=== PATIENT | male | born 1940 | race Caucasian/White ===

== ENCOUNTER 2016-08-17 14:12 | Emergency (ER) | payer MEDICARE, BC ==
[~2016-08-17] VITALS: Ht 182.9 cm; Wt 84.0 kg
[2016-08-17 14:30] VITALS: BP 142/68; PULSE 80; RESP 18; TEMP 99.3; O2SAT 96
[2016-08-17 18:33] VITALS: BP 160/81; PULSE 69; RESP 20; O2SAT 98
[2016-08-17] MEDS ORDERED: AZEL1SPR2 EACH NARE (18:39)
[2016-08-17] MEDS ORDERED: SYMB80AE INH (18:39)
[2016-08-17] MEDS ORDERED: PANT40TA3 PO (18:39)
[2016-08-17] MEDS ORDERED: ASPI1TAB69 PO (18:39)
[2016-08-17] MEDS ORDERED: VITA100064 PO (18:39)
[2016-08-17] MEDS ORDERED: VENTAER INH (18:39)
[2016-08-17] MEDS ORDERED: FINA5TAB2 PO (18:39)
[2016-08-17] MEDS ORDERED: OMEGCAP PO (18:39)
[2016-08-17] MEDS ORDERED: ATOR20TA15 PO (18:39)
--- NOTE | 2016-08-17 19:26 | PD ---
HPI Chief Complaint: Edema Time Seen by Provider: 19:20 Travel History International Travel<30 days: No Contact w/Intl Traveler<30days: No Traveled to known affect area: No History of Present Illness HPI 76-year-old male presents to the emergency department for complaint of bilateral pedal edema for 3-4 days. Patient has noted some change in severity of swelling after elevation. Some discomfort to the feet and ankles and lower legs. Patient recently traveled here by car from [place] 2 weeks ago. No shortness of breath no pleuritic pain no chest pain. Patient does have history of COPD patient does not report orthopnea or PND. Patient notes that 2 weeks ago he had some mild edema but that resolved and this has been persistent. No fever no chills no nausea no vomiting no chest pain no referred neck jaw back shoulder arm or abdominal pain. Patient denies any recent history or fall. No recent surgical procedure. No history of clotting disorder. Patient takes aspirin daily. Patient states he recently completed 4 courses of antibiotic for recurrent pneumonia. Is currently on a tapering dose of steroid. Patient denies any use of a diuretic. Patient rates pain 0/10. PFSH Past Medical History Narrative Medical Dyslipidemia COPD GERD herniorrhaphy carotid surgery no tobacco use nursing notes reviewed High Cholesterol: Yes COPD: Yes GERD: Yes Respiratory: Yes (COPD) Past Surgical History Other Surgery: Yes (HERNIA, CAROTID ARTERY) Social History Alcohol Use: No Tobacco Use: No (FORMER) Substance Use: No Allergies-Medications (Allergen,Severity, Reaction): Coded Allergies: Penicillin (Verified Allergy, Severe, Hives, 08/17/16) Spiriva (Verified Allergy, Severe, Throat swelling, 08/17/16) Sulfa (Verified Allergy, Severe, Hives, 08/17/16) Biaxin (Verified Allergy, Unknown, 08/17/16) Cipro (Verified Allergy, Unknown, Unknown, 08/17/16) Clarithromycin (Verified Allergy, Unknown, 08/17/16) Levaquin (Verified Allergy, Unknown, 08/17/16) Metronidazole (Verified Allergy, Unknown, 08/17/16) Tiotropium (Verified Allergy, Unknown, 08/17/16) Reported Meds & Prescriptions Reported Meds & Active Scripts Active Lasix (Furosemide) 20 Mg Tab 20 Mg PO DAILY Reported Ventolin Hfa 18 GM Inh (Albuterol Sulfate) 90 Mcg/Act Aer 1 Puff INH Q4H PRN Azelastine Nasal Pierron (Azelastine HCl) 0.1% Pierron 1 Pierron EACH NARE BID Symbicort Inh (Budesonide/Formoterol Fumarate) 80-4.5 Mcg/Act Aero 1 Puff INH Q12HR Vitamin D (Cholecalciferol) 1,000 Unit Tab 2,000 Units PO DAILY [place]-3 Fish Oil/Vitamin (Fish Oil-Cholecalciferol) 1,000-1,000 Mg Cap 1 Cap PO DAILY Aspirin 81 Mg Tabdr 81 Mg PO DAILY Finasteride 5 Mg Tab 5 Mg PO DAILY Do not crush. Pantoprazole (Pantoprazole Sodium) 40 Mg Tab 40 Mg PO DAILY Atorvastatin (Atorvastatin Calcium) 20 Mg Tab 20 Mg PO HS Review of Systems Except as stated in HPI: all other systems reviewed are Neg General / Constitutional: No: Fever, Chills Eyes: No: Visual changes HENT: No: Congestion Cardiovascular: Positive: Edema (bilateral pedal/ankle /lower leg), No: Chest Pain or Discomfort, Syncope, Dyspnea on exertion Respiratory: Positive: Shortness of Breath (chronic no exacerbation), No: Cough, Orthopnea, Pleuritic Pain Gastrointestinal: No: Nausea, Vomiting Genitourinary: No: Flank Pain Musculoskeletal: Positive: Edema, No: Myalgias, Arthralgias Skin: No Rash Neurologic: No: Weakness Psychiatric: No: Anxiety Endocrine: No: Polyuria Hematologic/Lymphatic: No: Lymph Node Enlargement Physical Exam Narrative GENERAL: Well-developed well-nourished male in no acute distress no respiratory distress using supplemental oxygen which is his normal. SKIN: Warm and dry. HEAD: Normocephalic. EYES: No scleral icterus. No injection or drainage. NECK: Supple, trachea midline. No JVD or lymphadenopathy. CARDIOVASCULAR: Regular rate and rhythm without murmurs, gallops, or rubs. RESPIRATORY: Breath sounds equal bilaterally. No accessory muscle use. GASTROINTESTINAL: Abdomen soft, non-tender, nondistended. MUSCULOSKELETAL: No cyanosis, bilateral 1+ ankle and pedal edema. Capillary refill brisk and less than 2 seconds per digit. Palpable dorsalis pedis pulses. BACK: Nontender without obvious deformity. No CVA tenderness. Data Data Last Documented VS Vital Signs Date Time Temp Pulse Resp B/P Pulse Ox O2 Delivery O2 Flow Rate FiO2 2/6/17 22:15 78 18 97 Nasal Cannula 2 08/17/16 22:00 134/72 08/17/16 14:30 99.3 Orders Complete Blood Count With Diff (08/17/16 19:17) Basic Metabolic Panel (Bmp) (08/17/16 19:17) B-Type Natriuretic Peptide (08/17/16 19:17) Troponin I (08/17/16 19:17) Urinalysis - C+S If Indicated (08/17/16 19:17) Iv Access Insert/Monitor (08/17/16 19:17) Ecg Monitoring (08/17/16 19:17) Oximetry (08/17/16 19:17) Oxygen Administration (08/17/16:17) Chest, Single Ap (08/17/16 19:17) Sodium Chloride 0.9% Flush (Ns Flush) (08/17/16 19:30) Us Leg Venous Doppler Bilat (08/17/16 ) Magnesium (Mg) (08/17/16 19:17) Labs Laboratory Tests Test 08/17/16 08/17/16 19:35 20:25 White Blood Count 9.1 TH/MM3 Red Blood Count 4.18 MIL/MM3 Hemoglobin 13.1 GM/DL Hematocrit 40.3 % Mean Corpuscular Volume 96.4 FL Mean Corpuscular Hemoglobin 31.5 PG Mean Corpuscular Hemoglobin 32.7 % Concent Red Cell Distribution Width 14.5 % Platelet Count 219 TH/MM3 Mean Platelet Volume 7.8 FL Neutrophils (%) (Auto) 83.9 % Lymphocytes (%) (Auto) 9.3 % Monocytes (%) (Auto) 6.0 % Eosinophils (%) (Auto) 0.4 % Basophils (%) (Auto) 0.4 % Neutrophils # (Auto) 7.8 TH/MM3 Lymphocytes # (Auto) 0.8 TH/MM3 Monocytes # (Auto) 0.5 TH/MM3 Eosinophils # (Auto) 0.0 TH/MM3 Basophils # (Auto) 0.0 TH/MM3 CBC Comment DIFF FINAL Differential Comment Sodium Level 146 MEQ/L Potassium Level 4.4 MEQ/L Chloride Level 108 MEQ/L Carbon Dioxide Level 31.7 MEQ/L Anion Gap 6 MEQ/L Blood Urea Nitrogen 16 MG/DL Creatinine 0.95 MG/DL Estimat Glomerular Filtration 77 ML/MIN Rate Random Glucose 102 MG/DL Calcium Level 8.3 MG/DL Magnesium Level 2.3 MG/DL Troponin I LESS THAN 0.02 NG/ML B-Type Natriuretic Peptide 47 PG/ML Urine Collection Type VOIDED Urine Color STRAW Urine Turbidity CLEAR Urine pH 6.5 Urine Specific [place] 1.008 Urine Protein NEG mg/dL Urine Glucose (UA) NEG mg/dL Urine Ketones NEG mg/dL Urine Occult Blood NEG Urine Nitrite NEG Urine Bilirubin NEG Urine Leukocyte Esterase NEG Urine Squamous Epithelial 0-2 /hpf Cells Microscopic Urinalysis Comment CULT NOT INDICATED MDM Medical Decision Making Medical Screen Exam Complete: Yes Emergency Medical Condition: Yes Medical Record Reviewed: Yes Interpretation(s) CBC & BMP Diagram 08/17/16 19:35 Last Impressions Chest X-Ray 08/17/16 1917 Signed Impressions: Service Date/Time: Wednesday, August 17, 2016 19:54 - CONCLUSION: 1. Emphysema with mild hyperinflation. Linear scarring left lung base. No focal consolidation. Yonathan Palomares MD Lower Extremity Ultrasound 08/17/16 0000 Signed Impressions: Service Date/Time: Wednesday, August 17, 2016 20:00 - CONCLUSION: Normal examination. Yonathan Palomares MD Differential Diagnosis Dependent edema, CHF, DVT, hypoproteinemia/hypoalbuminemia, renal dysfunction, lymphedema Narrative Course IV access obtained specimens collected and sent for resulting Imaging studies ordered Patient resting comfortably awaiting results Chest x-ray COPD otherwise no acute abnormality ultrasound negative for DVT lab values grossly normal range; patient declined EKG --no chest pain "just had one " doesn't want it; at this time patient appears stable for outpatient management and follow-up with primary care physician. Diagnosis Primary Impression: Pedal edema Referrals: Primary Care Physician call for appointment Patient Instructions: General Instructions Additional Instructions: Continue current medications as presently prescribed Elevate lower extremities Recommend as needed use of compression stockings May use diuretic as prescribed as needed but not to be taken daily or on a daily basis Return to the emergency department for any concerns or change in condition Med/Other Pt SpecificInfo: Prescription(s) given Scripts Furosemide (Lasix)20 Mg Tab20 Mg PO DAILY #4 TAB Ref 0 Prov:Yasmin Burt MD 08/17/16 Disposition: 01 DISCHARGE HOME Condition: Stable Yasmin Burt MD Aug 17, 2016 19:26
[2016-08-17] MEDS ORDERED: SODIUM CHLORIDE 0.9% FLUSH 5 ML FLUSH IVF PRN (19:30)
[2016-08-17 19:35] VITALS: O2SAT 97
[2016-08-17 19:56] LABS: CHLORIDE 108 MEQ/L (98-107); POTASSIUM 4.4 MEQ/L (3.5-5.1); SODIUM (NA) 146 MEQ/L (136-145)
[2016-08-17 19:59] LABS: ANION GAP 6 MEQ/L (5-15); AUTOMATED NEUTROPHIL # 7.8 TH/MM3 (1.8-7.7); BASOPHIL % 0.4 % (0.0-2.0); BICARBONATE 31.7 MEQ/L (21.0-32.0); BLOOD UREA NITROGEN 16 MG/DL (7-18); EOSINOPHIL % 0.4 % (0.0-4.0); HEMATOCRIT 40.3 % (39.0-51.0); HEMO FLAGS DIFF FINAL; LYMPH % 9.3 % (9.0-44.0); LYMPHOCYTE # 0.8 TH/MM3 (1.0-4.8); MAGNESIUM 2.3 MG/DL (1.5-2.5); MEAN CELL VOLUME 96.4 FL (80.0-100.0); MEAN CORPUSCULAR HEMOGLOBIN 31.5 PG (27.0-34.0); MEAN CORPUSCULAR HGB CONC 32.7 % (32.0-36.0); NEUT % 83.9 % (16.0-70.0); PLATELET COUNT 219 TH/MM3 (150-450); RED BLOOD COUNT 4.18 MIL/MM3 (4.50-5.90); RED CELL DISTRIBUTION WIDTH 14.5 % (11.6-17.2); WHITE BLOOD COUNT 9.1 TH/MM3 (4.0-11.0)
[2016-08-17 20:03] LABS: GLOMERULAR FILTRATION RATE 77 ML/MIN (>89)
[2016-08-17 20:30] LABS: BLOOD, URINE NEG (NEG); GLUCOSE,URINE NEG (NEG); KETONE, URINE NEG (NEG); NITRITE,URINE NEG (NEG); PH, URINE 6.5 (5.0-8.5)
[2016-08-17 20:49] VITALS: BP 133/67; PULSE 67; RESP 18; O2SAT 100
[2016-08-17 20:51] LABS: METHOD OF COLLECTION VOIDED; URINE COLOR STRAW (YELLW/STRAW)
[2016-08-17 20:52] LABS: COMMENT (UR) CULT NOT INDICATED; CULTURE IF INDICATED CULT NOT INDICATED; SQUAMOUS EPITHELIAL CELL URINE 0-2 /hpf (0-5)
--- NOTE | 2016-08-17 21:19 | RADHPO ---
EXAM DATE/TIME: 08/17/2016 20:00 [facility] COMPARISON: No previous studies available for comparison. INDICATIONS : Bilateraly feet edema. MEDICAL HISTORY : Hypercholesterolemia. Gastroesophageal reflux disease. COPD. SURGICAL HISTORY : Hernia repair. Endarterectomy. ENCOUNTER: Initial ACUITY: 3 days PAIN SCORE: 7/10 LOCATION: Bilateral legs TECHNIQUE: Venous ultrasound of the left and right leg was performed from the inguinal ligament to the proximal calf. Real-time, color Doppler and spectral tracing, compression and augmentation techniques were us ed. FINDINGS: RIGHT LEG: There is normal compressibility of the deep venous system from the inguinal region to the proximal ca lf. No echogenic clot is seen in the lumen of the common femoral, femoral, popliteal, and posterior tibial veins. There is a normal response of the venous system to proximal and distal augmentation an d respiration. LEFT LEG: There is normal compressibility of the deep venous system from the inguinal region to the proximal ca lf. No echogenic clot is seen in the lumen of the common femoral, femoral, popliteal, and posterior tibial veins. There is a normal response of the venous system to proximal and distal augmentation an d respiration. CONCLUSION: Normal examination. Yonathan Palomares MD on August 17, 2016 at 21:17 Board Certified Radiologist. This report was verified electronically.
--- NOTE | 2016-08-17 21:20 | RADHPO ---
EXAM DATE/TIME: 08/17/2016 19:54 [facility] COMPARISON: No previous studies available for comparison. INDICATIONS : Swollen legs. MEDICAL HISTORY : Chronic obstructive pulmonary disease. SURGICAL HISTORY : None. ENCOUNTER: Initial ACUITY: 2 days PAIN SCORE: 0/10 LOCATION: Bilateral chest FINDINGS: A single view of the chest demonstrates the lungs to be symmetrically aerated without evidence of mas s, infiltrate or effusion. Linear scarring left base. Emphysema. The cardiomediastinal contours are u nremarkable. Osseous structures are intact. CONCLUSION: 1. Emphysema with mild hyperinflation. Linear scarring left lung base. No focal consolidation. Yonathan Palomares MD on August 17, 2016 at 21:18 Board Certified Radiologist. This report was verified electronically.
[2016-08-17] MEDS ORDERED: FURO1TAB62 PO (21:48)
[2016-08-17 22:00] VITALS: BP 134/72; PULSE 68; RESP 18; O2SAT 99
== END 2016-08-17 22:22 | disposition home or self-care (01) ==
LOC: PHED 14:12
DX: R60.0 Localized edema (principal); E78.00 Pure hypercholesterolemia, unspecified; J44.9 Chronic obstructive pulmonary disease, unspecified; M79.89 Other specified soft tissue disorders
CPT/HCPCS: 71010; 80048; 81001; 83735; 83880; 84484; 85025; 93970